=== PATIENT | male | born 1990 | race Caucasian/White ===

== ENCOUNTER 2016-09-26 10:48 | Emergency (ER) | payer BC, OTHER ==
[~2016-09-26] VITALS: Ht 177.8 cm; Wt 76.2 kg
[2016-09-26] MEDS ORDERED: ADDERALL XR 2020 MG PO (10:59)
[2016-09-26 11:13] LABS: ABSOLUTE NEUTROPHILS 4.2 thou/uL (1.4-8.2); BASOPHILS 0.5 % (0.0-2.0); EOSINOPHILS 0.7 % (0.0-3.0); HEMATOCRIT 53.1 % (42.0-52.0); HEMOGLOBIN 18.1 gm/dL (14.0-18.0); LYMPHOCYTES 12.5 % (24.0-44.0); MCH 31.5 pg (26.0-34.0); MCV 92.6 fL (80.0-100.0); MONOCYTES 7.3 % (1.0-8.0); PLATELET COUNT 226 thou/uL (150-400); RBC 5.73 mil/uL (4.50-6.00); RDW 16.6 % (10.5-14.5); WBC 5.3 thou/uL (4.0-11.0)
[2016-09-26 11:14] LABS: MANUAL DIFF NO
[2016-09-26 11:19] LABS: URINE BILIRUBIN NEGATIVE (Negative); URINE BLOOD NEGATIVE (Negative); URINE COLOR YELLOW; URINE GLUCOSE-RANDOM* NEGATIVE (Negative); URINE KETONES NEGATIVE (Negative); URINE NITRITE NEGATIVE (Negative); URINE PROTEIN (DIPSTICK) NEGATIVE (Negative); URINE UROBILINOGEN 0.2 E.U./dl (0.2-1.0)
[2016-09-26 11:20] LABS: CREATININE 0.9 mg/dL (0.7-1.3); POTASSIUM 4.2 mmol/L (3.5-5.1)
[2016-09-26] MEDS ORDERED: NORCO 5-325 TA1 EACH PO (12:57)
[2016-09-26] MEDS ORDERED: CIPROFLOXACIN500 M1 PO (12:57)
[2016-09-26] MEDS ORDERED: FLAGYL500 MG PO (12:57)
[2016-09-26 13:16] VITALS: BP 119/62
== END 2016-09-26 13:18 | disposition home or self-care (01) ==
LOC: ER 10:48
PROVIDERS: Emergency Medicine
DX: K52.9 Noninfective gastroenteritis and colitis, unspecified (principal); F17.210 Nicotine dependence, cigarettes, uncomplicated